=== PATIENT | female | born 1975 | race African-American/Black ===

== ENCOUNTER 2018-05-10 18:26 | Emergency (ER) | payer OTHER ==
[2018-05-10 18:39] VITALS: BP 140/90; TEMP 98.4; BMI 17.8
--- NOTE | 2018-05-10 19:42 | PDOC ---
History of Present Illness - General Chief Complaint: Chest Pain Stated Complaint: CHEST PAIN Time Seen by Provider: 05/10/18 19:08 History Source: Patient Exam Limitations: No Limitations - History of Present Illness Initial Comments: 05/10/18 19:35 Pt is a 42yo F with no significant PMH presenting to ED with complaints of chest heaviness that started this morning. Pt states that yesterday she vomited around 6-7 times (nbnb) associated with non bloody diarrhea and nausea. after she had a sandwich. She denies vomiting and diarrhea today but endorses a heaviness in her chest that she experiences when she is lying down, standing up and walking around. Symptoms are reduced when she leans forward. She Denies vomiting and diarrhea today. She denies SOB, cough, abdominal pain, back pain, fevers, chills, recent illnesses, recent travel, sick contacts, weakness, numbness/tingling. She drank some water today but has not attempted to eat anything. PMD: none PMH: none PSH: none Meds: none Allergies: PCN (rash) Past History - Past Medical History Allergies/Adverse Reactions: Allergies Allergy/AdvReac Type Severity Reaction Status Date / Time Penicillins Allergy Rash Verified 05/10/18 19:30 Home Medications: Ambulatory Orders Famotidine [Pepcid -] 20 mg PO DAILY #7 tablet 05/10/18 COPD: No - Suicide/Smoking/Psychosocial Hx Smoking History: Current every day smoker Number of Cigarettes Smoked Daily: 12 Information on smoking cessation initiated: No 'Breaking Loose' booklet given: 02/14/16 Hx Alcohol Use: Yes (SOCIAL) Drug/Substance Use Hx: No Substance Use Type: None Review of Systems - Review of Systems Constitutional: Yes: Weakness. No: Chills, Fever HEENTM: No: Throat Pain, Difficulty Swallowing Respiratory: No: Cough, Orthopnea, Shortness of Breath Cardiac (ROS): Yes: See HPI, Lightheadedness. No: Palpitations, Syncope ABD/GI: Yes: Diarrhea, Nausea, Vomiting. No: Constipated, Difficulty Swallowing , Rectal Bleeding, Abdominal cramping, Tarry Stools : No: Symptoms Reported Musculoskeletal: No: Back Pain, Muscle Pain Integumentary: No: Symptoms Reported Neurological: No: Headache, Numbness, Tingling, Weakness *Physical Exam - Vital Signs Last Vital Signs Temp Pulse Resp BP Pulse Ox 98.4 F 100 H 18 140/90 100 05/10/18 18:28 05/10/18 18:28 05/10/18 18:28 05/10/18 18:28 05/10/18 18:28 - Physical Exam General Appearance: Yes: Appropriately Dressed, Thin. No: Apparent Distress HEENT: positive: EOMI, DARCI Neck: positive: Trachea midline. negative: Supple, Lymphadenopathy (R), Lymphadenopathy (L) Respiratory/Chest: positive: Lungs Clear, Normal Breath Sounds. negative: Crackles, Rales, Rhonchi, Plerual Rub Cardiovascular: positive: Regular Rhythm, Regular Rate, S1, S2. negative: Edema , JVD, Murmur Vascular Pulses: Carotid (R): 2+, Carotid (L): 2+ Gastrointestinal/Abdominal: positive: Normal Bowel Sounds, Soft, Tenderness (llq ). negative: Distended, Guarding, Rebound Musculoskeletal: negative: CVA Tenderness Extremity: positive: Normal Capillary Refill Integumentary: positive: Normal Color, Dry, Warm Neurologic: positive: engineering and development director II-XII NML intact, Fully Oriented, Alert, Normal Mood/ Affect, Normal Response, Motor Strength 5/5 Moderate Sedation - Procedure Monitoring Vital Signs: Procedure Monitoring Vital Signs Temperature 98.4 F 05/10/18 18:28 Pulse Rate 100 H 05/10/18 18:28 Respiratory Rate 18 05/10/18 18:28 Blood Pressure 140/90 05/10/18 18:28 O2 Sat by Pulse Oximetry (%) 100 05/10/18 18:28 ED Treatment Course - LABORATORY CBC & Chemistry Diagram: 05/10/18 19:24 05/10/18 19:24 Medical Decision Making - Medical Decision Making 05/10/18 19:42 Pt is a 42yo F with no significant PMH presenting to ED with complaints of chest heaviness that started this morning. Pt states that yesterday she vomited around 6-7 times (nbnb) associated with non bloody diarrhea and nausea. after she had a sandwich. She denies vomiting and diarrhea today but endorses a heaviness in her chest that she experiences when she is lying down, standing up and walking around. Symptoms are reduced when she leans forward. She Denies vomiting and diarrhea today. She denies SOB, abdominal pain, back pain, fevers, chills, recent illnesses, recent travel, sick contacts, weakness, numbness/ tingling. She drank some water today but has not attempted to eat anything. Vitals: HR 100, afebrile PE: slight LLQ tenderness Ddx includes but not limited to pericarditis, pancreatitis, esophagitis, GE, ACS , PNA, PE, PUD, dissection low suspicion for dissection (no comorbidities, hemodynamically stable), PERC negative. Most likely esophageal irritation from vomiting. -labs, lipase, trop -ekg, cxr, POCUS -iv fluids, pepcid, maalox, lido -will reevaluate. EKG shows nsr, no suzie elevations or depressions POCUS did not show effusion labs wnl. CXR does not show consolidations or pneumomediastinum. Pt given juice and crackers. Tolerated po. Pt has pmd follow up. Will DC home. given rx for pecid. 05/10/18 21:47 *DC/Admit/Observation/Transfer Diagnosis at time of Disposition: Chest discomfort - Discharge Dispostion Disposition: HOME Condition at time of disposition: Improved Decision to Admit order: No - Prescriptions Prescriptions: Famotidine [Pepcid -] 20 mg PO DAILY #7 tablet - Referrals - Patient Instructions Printed Discharge Instructions: DI for Atypical Chest Pain Additional Instructions: You were seen in the emergency room today for chest heaviness. The blood work was normal, your EKG was normal and the Xray was also normal. You most likely have esophageal irritation from the vomiting. A prescription was sent to your pharmacy for Pepcid which will help decrease acid production so the esophagus does not get irritated. Keep yourself well hydrated. Stay away from fried, acidic and fatty foods for the next few days. Please make an appointment with your primary care doctor in the next week. Come back to the emergency room if pain gets worse, you have difficulty breathing, you develop fever, there is blood in the vomit or stool or if any new concerning symptom develops. Thank you - Post Discharge Activity
[2018-05-10] MEDS ORDERED: FAMOTIDINE 20 MG/50 ML IVPB 20 MG/50 ML MG IVPB ONE ×2 (19:48→19:55)
[2018-05-10] MEDS ORDERED: SODIUM CHLORIDE 1,000 ML IV STA (19:48)
[2018-05-10 19:53] VITALS: PULSE 94
[2018-05-10 20:05] LABS: HEMATOCRIT 40.2 % (32.4-45.2); HEMOGLOBIN 13.8 GM/dL (10.7-15.3); MCH 30.6 pg (25.7-33.7); MCHC 34.3 g/dl (32.0-36.0); MEAN CELL VOLUME 89.3 fl (80-96); RDW 14.7 % (11.6-15.6); WHITE BLOOD COUNT 4.3 K/mm3 (4.0-10.0)
[2018-05-10 20:06] LABS: BASO % 0.3 % (0-2.0); EOS % 0.1 % (0-4.5); LYMPH % 15.3 % (8-40); MEAN PLT VOLUME 8.8 fl (7.5-11.1); MONO % 6.5 % (3.8-10.2); NEUT % 77.8 % (42.8-82.8); PLATELET COUNT 333 K/MM3 (134-434)
--- NOTE | 2018-05-10 20:15 | PDOC ---
Attending Attestation - Resident Resident Name: VandaLilia - ED Attending Attestation I have performed the following: I have examined & evaluated the patient, The case was reviewed & discussed with the resident, I agree w/resident's findings & plan, Exceptions are as noted - HPI HPI: 05/11/18 01:29 42yo female presents with cp. Pt states she was in the hospital yesterday with her daughter who was in labor. Ate a sandwich and then developed n/v. States today she felt a burning sensation and heaviness in her chest. Chest is tender when touched or when she moves. No cough. NO f/c. NO abd pain. Nonbloody/ nonbilious vomitus. No sob. NO radiation of the pain. NO acs or perc risk factors - Physicial Exam PE: 05/11/18 01:41 Gen: aaox3, nad heent: eomi, mmm neck: supple heart: +s1s2 reg lungs: cta b/l, chest wall ttp that reproduces her pain abd: soft, nt/nd +bs ext: no c/c/e, ambulatory with a steady gait - Medical Decision Making 05/10/18 20:15 I, Dr. Earline Salgado, DO, attest that this document has been prepared under my direction and personally reviewed by me in its entirety. I further attest, that it accurately reflects all work, treatment, procedures and medical decision -making performed by me. 05/10/18 21:08 a/p: 42yo female presents for eval of chest pain today -had n/v yesterday -multiple episodes -states cp worse when she moves and reproducible when palpated anterior chest -lungs cta -pt denies f/c or cough -no acs risk factors - no pmhx -no radiation of the pain -PERC neg -will send labs, ekg, cxr -will medicate -will monitor and reassess 05/10/18 21:11 cxr clear 05/10/18 21:39 pt feeling much better labs reviewed trop negative lipase negative tolerated po intake in the ED 05/11/18 01:41 pt is stable for dc to home Heart Score/ECG Review - ECG Intrepretation Comment:: 05/10/18 20:34 sinus at 99, nl axis, nl interval, lvh, no acute s/tt wave findings
[2018-05-10] MEDS ORDERED: MAG HYDROX/AL HYDROX/SIMETH 30 ML UNIT-DOSE CUP PO ONE (20:18)
[2018-05-10] MEDS ORDERED: LIDOCAINE VISCOUS 2% ORAL/TOP 20 ML UNIT-DOSE CUP MM ONE (20:19)
[2018-05-10 20:25] LABS: ALK PHOS 71 U/L (45-117); ANION GAP 8 MMOL/L (8-16); BLOOD UREA NITROGEN 14 mg/dL (7-18); CHLORIDE 102 mmol/L (98-107); CO2 25 mmol/L (21-32); CREATININE 0.8 mg/dL (0.55-1.3); GLUCOSE,RANDOM 81 mg/dL (74-106); MAGNESIUM 2.2 mg/dL (1.8-2.4); POTASSIUM 4.2 mmol/L (3.5-5.1); SGOT/AST 39 U/L (15-37); SGPT/ALT 21 U/L (13-61); SODIUM 135 mmol/L (136-145); TOT PROT 8.1 g/dl (6.4-8.2)
[2018-05-10] MEDS ORDERED: MAG HYDROX/AL HYDROX/SIMETH 30 ML UNIT-DOSE CUP ONE (20:37)
[2018-05-10] MEDS ORDERED: LIDOCAINE VISCOUS 2% ORAL/TOP 20 ML UNIT-DOSE CUP ONE (20:37)
[2018-05-10 21:11] LABS: LIPASE 74 U/L (73-393)
--- NOTE | 2018-05-11 10:28 | EKG ---
Test Reason : Blood Pressure : / mmHG Vent. Rate : 099 BPM Atrial Rate : 099 BPM P-R Int : 144 ms QRS Dur : 082 ms QT Int : 342 ms P-R-T Axes : 065 033 005 degrees QTc Int : 438 ms NORMAL SINUS RHYTHM MINIMAL VOLTAGE CRITERIA FOR LVH, MAY BE NORMAL VARIANT WHEN COMPARED WITH ECG OF 14-FEB-2016 10:47, NO SIGNIFICANT CHANGE WAS FOUND Confirmed by DENISE WALLACE MD ([id number]) on 05/11/2018 10:28:32 AM Referred By: Confirmed By:DENISE WALLACE MD
== END 2018-05-10 22:11 | disposition home or self-care (01) ==
LOC: JER 18:26
PROC: 3E033GC Introduction of Other Therapeutic Substance into Peripheral Vein, Percutaneous Approach (ICD-10-PCS; principal; 2018-05-10)
PROC: BB4BZZZ Ultrasonography of Pleura (ICD-10-PCS; 2018-05-10)
DX: R07.89 Other chest pain (principal)
CPT/HCPCS: 36415; 71046-TC-FY; 80053; 83690; 83735; 84484; 85025; 93005; 93010; 99283-25; J7030